=== PATIENT | male | born 1950 | race Two or more races ===

== ENCOUNTER 2024-02-14 22:16 | Emergency (ER) | payer MEDICARE, OTHER ==
[~2024-02-14] VITALS: Ht 182.9 cm; Wt 136.6 kg
[2024-02-14 22:24] VITALS: BP 103/73; PULSE 57; RESP 18; TEMP 98.6; O2SAT 94
[2024-02-15] MEDS: LIDOCAINE 1% HCL (LOCAL ANESTH.) INJ 20ML MDV ID ONE (01:30)
[2024-02-15] MEDS: TETANUS-DIPTH-ACEL PERTUSSIS 0.5ML SYR Tdap IM ONE (02:06)
[2024-02-15] MEDS ORDERED: AUG875T PO (03:01)
== END 2024-02-15 03:15 | disposition home or self-care (01) ==
LOC: ER 22:16
DX: S61.216A Laceration without foreign body of right little finger without damage to nail, initial encounter (principal); Z88.1 Allergy status to other antibiotic agents; Z79.899 Other long term (current) drug therapy; W26.8XXA Contact with other sharp object(s), not elsewhere classified, initial encounter; Y93.89 Activity, other specified; Y92.89 Other specified places as the place of occurrence of the external cause; Y99.8 Other external cause status
CPT/HCPCS: 12001; 73140; 90471; 90715; J2001